=== PATIENT | male | born 1955 | race Caucasian/White ===

== ENCOUNTER → 2017-06-03 | Outpatient (CLI) | payer BC ==
[~2017-06-03] MED LIST: APIX5TAB PO; ASPI-496 PO; ASPI325T17 PO; DILT120C9 PO; FLEC100T PO; FLEC150T PO; FLEC50TA25 PO; FOLI20CA PO; MULT-257 PO; RIVA20TA PO; vitamin b1 PO
== END | disposition home or self-care (01) ==
LOC: RAD 07:51
PROVIDERS: ATTEND Internal Medicine
DX: I10 Essential (primary) hypertension (principal)
CPT/HCPCS: 78452; 93017; A9502

== ENCOUNTER 2018-04-12 09:24 | Emergency (ER) | payer BC ==
[~2018-04-12] VITALS: Ht 185.4 cm; Wt 97.8 kg
--- NOTE | 2018-04-12 09:32 | NUR ---
PT AMBULATORY WITH STEADY GAIT TO ROOM.
[2018-04-12] MEDS ORDERED: DILTIAZEM 5 MG/ML, 5ML ONE (09:46)
[2018-04-12 09:59] LABS: BASOPHILS # (AUTO) 0.02 x10^3/uL (0-0.1); BASOPHILS % (AUTO) 0 % (0-1); EOSINOPHILS # (AUTO) 0.15 x10^3/uL (0-0.4); EOSINOPHILS % (AUTO) 2 % (1-7); LYMPHOCYTES % (AUTO) 20 % (22-44); MD NO; MEAN CORPUSCULAR HEMOGLOBIN 31.6 pg (27.5-34.5); MEAN CORPUSCULAR HGB CONC 33.8 g/dL (33.2-36.2); MEAN CORPUSCULAR VOLUME 93.4 fL (81-97); MEAN PLATELET VOLUME 7.9 fL (7.4-10.4); MONOCYTES % (AUTO) 12 % (2-9); NEUTROPHILS # (AUTO) 4.61 x10^3/uL (1.8-6.8); NEUTROPHILS % (AUTO) 66 % (42-75); PLATELET COUNT 294 x10^3/uL (130-400); RED BLOOD COUNT 5.32 x10^6/uL (4.38-5.82); RED CELL DISTRIBUTION WIDTH 13.2 % (9.4-14.8)
[2018-04-12] MEDS ORDERED: SODIUM CHLORIDE 0.9% 1,000ML IVBOLUS ONE (10:00)
[2018-04-12] MEDS ORDERED: DILTIAZEM 5 MG/ML, 5ML IVPush ONE (10:00)
[2018-04-12 10:06] LABS: INTERNATIONAL NORMALIZED RATIO 1.01 (0.93-1.1); PROTHROMBIN TIME 10.7 Seconds (9.6-11.5)
[2018-04-12 10:07] LABS: ALANINE AMINOTRANSFERASE 62 U/L (12-78); ALBUMIN 4.1 g/dL (3.4-5.0); ANION GAP 8 mmol/L (5-15); CHLORIDE 105 mmol/L (98-107); CREATININE 1.29 mg/dL (0.7-1.3)
[2018-04-12] MEDS ORDERED: PROPOFOL 10 MG/ML, 20ML ONE (10:16)
[2018-04-12 10:18] LABS: ALKALINE PHOSPHATASE 56 U/L (45-117); BILIRUBIN,TOTAL 0.7 mg/dL (0.2-1.0); TOTAL PROTEIN 7.7 g/dL (6.4-8.2)
[2018-04-12] MEDS ORDERED: RIVAROXABAN 20 MG TABLET PO SCH (10:30)
[2018-04-12] MEDS ORDERED: PROPOFOL 10 MG/ML, 20ML IVPush ONE (10:30)
[2018-04-12] MEDS ORDERED: HEPARIN 1,000 UNITS/ML, 1ML IV ONE (10:30)
[2018-04-12] MEDS ORDERED: HEPARIN 5,000 UNITS/ML, 1ML ONE (10:32)
[2018-04-12 10:49] VITALS: BP 113/71
--- NOTE | 2018-04-12 10:53 | NUR ---
DESHAWN JAMES NOTE: PATIENT CARE ASSUMED. PATIENT SET UP FOR MODERATE SEDATION. PATIENT HAS MONITOR, O2, SUCTION, CODE CART BS. IV ESTABLISHED AND A TOTAL OF 200 ML NS GIVEN DURING PROCEDURE. PATIENT WAS GIVEN 150 MG PROPOFOL BY MD SAMANO. 50 ML WASTED WITH MD SAMANO PRESENT AND WITNESSED THIS. PATIENT IS AWAKE TO VOICE BY 10:45. CONVERETD TO NSR AND VSS AT THIS TIME. SEE ADDTIONAL PAPER RECORDS. VS INPUTED FROM PROCEDURE. REPORT TO TAMMY JAMES
[2018-04-12] MEDS ORDERED: RIVAROXABAN 20 MG TABLET ONE (11:24)
== END 2018-04-12 12:19 | disposition home or self-care (01) ==
LOC: ED 10:21
DX: I48.92 Unspecified atrial flutter (principal); I48.91 Unspecified atrial fibrillation
CPT/HCPCS: 36415; 71045; 80053; 83735; 84443; 85025; 85610; 85730; 92960; 93005; 96365; 99291; J1644; J2704; J7030